=== PATIENT | male | born 1950 | race Caucasian/White ===

== ENCOUNTER 2018-04-26 13:44 | Outpatient (CLI) | payer MEDICARE | END 2018-04-26 23:59 | disposition home or self-care (01) | LOC: RAD 13:44 | PROVIDERS: ATTEND Family Medicine | DX: R13.14 Dysphagia, pharyngoesophageal phase (principal); Z87.891 Personal history of nicotine dependence; Z72.89 Other problems related to lifestyle | CPT/HCPCS: 74230 ==

== ENCOUNTER 2025-04-17 09:22 | Outpatient (CLI) | payer MEDICARE ==
--- NOTE | 2025-04-18 04:22 | CONSULTATION ---
DATE OF CONSULTATION: 04/17/2025 DICTATING PHYSICIAN: Karen Payne M.S., [facility] [employer] OPERATOR MODIFIED BARIUM SWALLOW STUDY REPORT REFERRING PHYSICIAN: Jair Pineda MD HISTORY OF PRESENT ILLNESS: The patient is a 74-year-old male and consents to this evaluation. History was obtained from the patient and medical records. The patient reports symptoms of dysphagia including difficulty with food going down the wrong pipe. He reports that very rarely he will swallow a pill and it becomes stuck in his esophagus. At that point, he needs to take a mouthful of water to help push it down. He also has phlegm, which can be variable by day. The patient reports that he had a previous modified barium swallow study about 7 years ago, which revealed a shelf in his throat and that he did not have swallowing therapy at that time. There was a note about Parkinson's disease in his diagnoses, but the patient stated that he had been considered to potentially have it, but that 2 tests had ruled that out. He did break his neck about 10 years ago in which he fractured C2-C3 and C6-C7. At that time, he became quadriplegic and then has since regained that motion in his legs and arms. He has been dealing with some spasticity as of recently and so this has caused more difficulty for him. CURRENT DIET: The patient is currently on a regular texture, thin liquid diet with no restrictions at this time. MEDICATIONS: Tamsulosin HCl 0.4 mg 1 capsule once daily orally, citalopram hydrobromide 10 mg 1 tablet once daily orally, vitamin D3 1000 units 1 tablet once daily orally, Gablofen 10,000 mcg/20 mL intrathecal solution, duloxetine 30 mg ER 2 capsules once daily orally, Lyrica 150 mg 1 tablet four times daily orally. PARAMETERS: The patient is seated in a lateral 90-degree view and administered the usual protocol of thin and nectar-thick liquids, puree and solid consistencies, as well as self-regulated boluses of thin liquids from a cup. RESULTS: In the oral stage of the swallow, lingual strength is noted to be mildly reduced. There is a mild to moderate oral residue following the initial swallow boluses. In the pharyngeal stage of the swallow, swallow initiation was delayed to the level of the vallecula for thin liquids. Tongue base retraction was mild to moderately reduced. Elevation of the hyothyroid complex was accomplished with mildly reduced epiglottic inversion. There was a moderate pharyngeal residue for thin liquid boluses, mostly due to moderately decreased PES opening during the thin liquid boluses. In terms of airway safety, the patient demonstrated with penetration on the residue from the 5 mL in the food bolus. ANTERIOR, POSTERIOR VIEW: In the AP plane, the large majority of the bolus filtered through the left piriform sinus and there was proximal movement of the boluses to the level of the mid sternum. 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 The patient also demonstrates proximal movement of the boluses in the AP view to the level of the mid sternum. DIAGNOSES: R13.12, dysphagia, oropharyngeal phase, G82.5, quadriplegia unspecified. PATIENT EDUCATION: Immediately following modified barium swallow study, the patient and his were able to view the results. The normal anatomy of the swallowing mechanism was revealed. The patient was able to see how the current status of the swallowing mechanism decreases his ability to swallow normally. He was educated on a recommendation for speech therapy services to strengthen the muscles involved in swallowing and indicated that he would think about it and call the clinician back if he decided to pursue swallowing therapy. He was recommended to use swallow twice for thin liquid boluses and was educated on the effortful swallow exercise. RECOMMENDATIONS: 1. It was recommended that the patient receive swallowing therapy one time weekly for 12 weeks to improve the strength of the swallowing musculature. The patient is unsure if he wants to pursue swallowing therapy at this time. 2. It is recommended that the patient utilize safe swallowing strategies including swallowing twice for thin liquid boluses and utilizing an effortful swallow. LONG-TERM GOALS: The patient will maintain adequate hydration/nutrition with optimum safety and efficiency of swallow function on p.o. intake without overt signs and symptoms of aspiration for the highest possible diet level. PROGNOSIS: Prognosis for the patient is fair to good based on the patient's motivation to implement the strategies, but being unsure if he will follow up for that swallowing therapy. FUNCTIONAL ORAL INTAKE: The FOIS was administered to establish and document a change in the functional eating activities of this patient over time. This is a 7-point scale with 1 indicating no oral intake and totally tube dependent and 7 indicating total oral intake with no restrictions. This patient received a 6 which indicates he has a total oral diet with multiple consistencies without special preparation, but with specific food limitations and precautions. These precautions being foods that would aggravate that proximal movement of the bolus observed in the AP view. G-CODE: [id number]. Thank you very much for asking me to participate in the care of this kind patient. If you have any questions regarding this evaluation or recommendations, please do not hesitate to contact me at [phone]. During this examination, 3.45 minutes of fluoroscopy time and 37.4 CAK mGy were utilized. Karen Payne M.S., [facility] OPERATOR TID: [id number] RECEIPT: [id number] LOUISE AYALA
== END 2025-04-17 23:59 | disposition home or self-care (01) ==
LOC: RAD 09:22
PROVIDERS: ATTEND Family Medicine
DX: R13.12 Dysphagia, oropharyngeal phase (principal); G82.50 Quadriplegia, unspecified; G20.A1 Parkinson's disease without dyskinesia, without mention of fluctuations
CPT/HCPCS: 74230